=== PATIENT | female | born 1965 | race Caucasian/White ===

== ENCOUNTER 2017-10-26 11:57 | Emergency (ER) | payer SELFPAY | END 2017-10-26 15:37 | disposition home or self-care (01) | LOC: D.ER 11:57 | DX: S40.012A Contusion of left shoulder, initial encounter (principal); X58.XXXA Exposure to other specified factors, initial encounter; Y93.02 Activity, running; Y92.019 Unspecified place in single-family (private) house as the place of occurrence of the external cause; I10 Essential (primary) hypertension; F17.200 Nicotine dependence, unspecified, uncomplicated ==

== ENCOUNTER 2018-03-26 18:21 | Observation (INO) | payer SELFPAY ==
[~2018-03-26] VITALS: Ht 180.3 cm; Wt 78.5 kg
[2018-03-26 18:54] LABS: BASOPHILS 0.2 % (0-2); EOSINOPHILS 3.6 % (0-7); HEMATOCRIT 38.9 % (36.0-48.0); HEMOGLOBIN 13.7 g/dL (12-16); IMMATURE GRANULOCYTES 0.5 % (0-5); LYMPHOCYTES 46.1 % (15-50); MCH 29.9 pg (26.0-34.0); MCHC 35.2 g/dL (31.0-37.0); MCV 84.9 fL (80.0-100.0); MEAN PLATELET VOLUME 11.5 fL (7.4-10.4); MONOCYTES 2.6 % (2-11); PLATELET COUNT 184 10x3/uL (130-400); RBC 4.58 10x6/uL (4.00-5.40); RDW 13.9 % (11.5-14.5); WBC 10.4 10x3/uL (4.8-10.8)
[2018-03-26 19:19] LABS: ALBUMIN 3.8 g/dL (3.4-5.0); ALKALINE PHOSPHATASE 110 U/L (46-116); ALT (SGPT) 18 U/L (10-68); BILIRUBIN - TOTAL 0.26 mg/dL (0.2-1.3); CALC OSMOLALITY 285 mosm/kg (275-300); CALCIUM 8.7 mg/dL (8.5-10.1); CHLORIDE - SERUM 104 mmol/L (98-107); GLUCOSE 185 mg/dL (74-106); POTASSIUM - SERUM 3.2 mmol/L (3.5-5.1); PROTEIN - SERUM 7.1 g/dL (6.4-8.2); SODIUM 141 mmol/L (136-145); UREA NITROGEN 12 mg/dL (7-18); eGFR NON AFRICAN AMERICAN 62 mL/min (90-120)
[2018-03-26 19:36] LABS: CKMB 0.4 U/L (0.0-3.6); CREATINE KINASE 54 UL (21-215); PRO BNP 50 pg/mL (0-125)
[2018-03-26 19:38] LABS: TROPONIN-I < 0.017 ng/mL (0.000-0.060)
[2018-03-26] MEDS ORDERED: METOPROLOL TART50 MG PO (20:41)
[2018-03-26] MEDS ORDERED: RANEXA500 MG PO (20:41)
[2018-03-26] MEDS ORDERED: PROPRANOLOL HCL20 MG PO (20:42)
[2018-03-26] MEDS ORDERED: GLUCOTROL 5 MG T5 MG PO (20:42)
[2018-03-26] MEDS ORDERED: [UNRECOGNIZED DRUG - CODE] PO (20:45)
[2018-03-26] MEDS ORDERED: LASIX40 MG PO (20:45)
[2018-03-26] MEDS ORDERED: NEXIUM40 MG PO (20:45)
[2018-03-26] MEDS ORDERED: LYRICA100 MG PO (20:46)
[2018-03-26] MEDS ORDERED: GEMFIBROZIL600 MG PO (20:46)
[2018-03-26] MEDS ORDERED: BAYER CHEWABLE81 MG PO (20:46)
[2018-03-27 01:37] VITALS: BP 104/68
[2018-03-27 01:44] LABS: CKMB 0.2 U/L (0.0-3.6); CREATINE KINASE 43 UL (21-215); TROPONIN-I < 0.017 ng/mL (0.000-0.060)
[2018-03-27 04:00] VITALS: BP 93/57
[2018-03-27 05:35] LABS: CHOL - HDL RATIO 4.6 ratio (2.3-4.1); LDL-HDL RATIO 2.9 ratio (1.5-3.5)
[2018-03-27 09:07] LABS: CKMB 0.2 U/L (0.0-3.6); CREATINE KINASE 35 UL (21-215)
[2018-03-27 09:10] LABS: TROPONIN-I < 0.017 ng/mL (0.000-0.060)
[2018-03-27 09:35] VITALS: BP 100/63
[2018-03-27 11:55] VITALS: BP 97/56
[2018-03-27 13:07] VITALS: Ht 180.3 cm; Wt 78.5 kg
== END 2018-03-27 13:58 | disposition home or self-care (01) ==
LOC: D.ER 18:21 → D.M2 22:26 → D.ER 22:26 → OBSVTIME 22:26 → D.M2 03-27 13:58
PROVIDERS: Emergency Medicine; Family Medicine
DX: I25.110 Atherosclerotic heart disease of native coronary artery with unstable angina pectoris (principal); Z95.5 Presence of coronary angioplasty implant and graft; J44.9 Chronic obstructive pulmonary disease, unspecified; E78.5 Hyperlipidemia, unspecified; E11.9 Type 2 diabetes mellitus without complications; Z72.0 Tobacco use; I10 Essential (primary) hypertension